=== PATIENT | male | born 1970 | race Caucasian/White ===

== ENCOUNTER 2018-05-09 13:51 | Inpatient (IN) | payer OTHER ==
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
[2018-05-09] MEDS ORDERED: fentaNYL 100 MCG/2 ML INJ IVP ONE (14:10)
[2018-05-09] MEDS ORDERED: IOPAMIDOL (ISOVUE-300) 100 ML BTL ONE (14:18)
[2018-05-09] MEDS ORDERED: HYDROmorphONE/DILAUDID 2 MG/ML INJ IVP ONE ×3 (14:55→15:59)
[2018-05-09] MEDS ORDERED: LET GEL TOPICAL 1 EA SYR TP ONE ×2 (15:18→15:20)
[2018-05-09] MEDS ORDERED: HYDROmorphONE/DILAUDID 1 MG/ML INJ ONE (15:34)
[2018-05-09] MEDS: HYDROmorphONE/DILAUDID 1 MG/ML INJ IVP ONE ×2 (15:38→16:06)
[2018-05-09] MEDS ORDERED: KETAMINE 200 MG/20 ML VIAL IVP ONE (16:01)
[2018-05-09 16:09] LABS: PLATELET COUNT 351 10^3/uL (150-400)
[2018-05-09 16:16] LABS: PROTIME(PATIENT) 13.4 SEC (12.0-15.0)
[2018-05-09] MEDS ORDERED: NALOXONE HCL 0.4 MG/ML INJ IVP PRN ×2 (17:10→17:14)
[2018-05-09] MEDS ORDERED: ACETAMINOPHEN 325 MG TAB PO PRN (17:14)
[2018-05-09] MEDS ORDERED: ESCITALOPRAM OXALATE 10 MG TAB PO PRN (17:35)
[2018-05-09] MEDS: LORazepam 2 MG/ML INJ IVP PRN (17:55)
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
[2018-05-09] MEDS: KETOROLAC 15 MG/1 ML SDV IVP SCH ×2 (18:24→23:45)
[2018-05-09] MEDS: HYDROmorphONE/DILAUDID 6 MG/30 ML PCA IV PRN (23:50)
[2018-05-10] MEDS: KETOROLAC 15 MG/1 ML SDV IVP SCH ×3 (05:37→18:24)
[2018-05-10] MEDS: LR 1,000 ML IV SCH ×2 (05:43→20:32)
[2018-05-10 05:59] LABS: PLATELET COUNT 175 10^3/uL (150-400)
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
[2018-05-10 07:20] LABS: PLATELET COUNT 189 10^3/uL (150-400)
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
[2018-05-10] MEDS: ONDANSETRON 4 MG/2 ML VIAL IVP PRN ×2 (14:18→19:52)
--- NOTE | 2018-05-10 15:29 | TRAUMAPNT ---
Trauma Tertiary Progress Note New Findings: No new findings Assessment/Plan: PAD#1 06/10/2018 Assessment: Neuro: SAH/TBI - awake and alert, appears cognitively intact C6 facet fx - in c-collar T7 and L4 Compression Fx - in [place] brace Ortho: Awaiting Dr. Cabrera's input regarding clavicular Fx Awaiting Dr. Oliver's input regarding PIP fracture Chest: Has two fractures in right ribs 2-5 and less than .2%PTX Plan: Feed patient Follow ortho/ neuro suggestions obtain F/u CXR work with pulmonary toilet/pain control Subjective: No new complaints Objective: Vital Signs Temp Pulse Resp BP Pulse Ox 36.8 C 54 L 18 153/79 H 95 05/10/18 12:00 05/10/18 14:00 05/10/18 14:00 05/10/18 14:00 05/10/18 14:00 Laboratory Results 05/10/18 07:00 05/09/18 05/10/18 05/11/18 05:59 05:59 05:59 Intake Total 823 Output Total 450 Balance 373 PT 13.4 SEC (12.0-15.0) 05/09/18 14:12 INR 1.00 (0.83-1.16) 05/09/18 14:12 - C-Spine Clearance Cervical Spine Cleared: No Physical Exam - Physical Exam General Appearance: WD/WN, alert, mild distress Neck: other (In [place] collar) Respiratory: lungs clear, normal breath sounds Cardiac/Chest: regular rate, rhythm Abdomen: normal bowel sounds, non-tender, soft Male Genitalia: deferred Rectal: deferred Skin: normal color, warm/dry Extremities: other (right clavicular fracture/right shoulder swelling) Neuro/Psych: alert, normal mood/affect, oriented x 3 Time Spent w/Patient (minutes): 45
[2018-05-10] MEDS ORDERED: LACTULOSE 20 GM/30 ML UDCUP PO PRN (15:38)
[2018-05-10] MEDS ORDERED: BISACODYL 10 MG SUPP PR PRN (15:38)
[2018-05-10] MEDS ORDERED: POLYETHYLENE GLYCOL 3350 17 GM PKT PO PRN (15:38)
[2018-05-10] MEDS ORDERED: MAGNESIUM HYDROXIDE 30 ML UDCUP PO PRN (15:38)
[2018-05-10] MEDS: LIDOCAINE 4%/MENTHOL 1% PATCH TD SCH (16:36)
[2018-05-10 17:04] LABS: PLATELET COUNT 173 10^3/uL (150-400)
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
[2018-05-10] MEDS: HYDROmorphONE/DILAUDID 6 MG/30 ML PCA IV PRN (18:57)
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
[2018-05-10] MEDS: SENNOSIDES/DOCUSATE SODIUM TAB PO SCH (21:54)
[2018-05-10] MEDS: PATCH REMOVAL 1 EA PATCH TD SCH (22:03)
[2018-05-10] MEDS: ACETAMINOPHEN 500 MG TAB PO SCH (22:03)
[2018-05-11] MEDS: KETOROLAC 15 MG/1 ML SDV IVP SCH ×5 (00:04→23:05)
[2018-05-11] MEDS: HYDROmorphONE/DILAUDID 6 MG/30 ML PCA IV PRN (01:56)
[2018-05-11] MEDS: ACETAMINOPHEN 500 MG TAB PO SCH ×3 (05:09→22:39)
[2018-05-11 05:26] LABS: PLATELET COUNT 152 10^3/uL (150-400)
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
[2018-05-11] MEDS: LR 1,000 ML IV SCH (09:24)
[2018-05-11] MEDS: ONDANSETRON 4 MG/2 ML VIAL IVP PRN ×2 (09:36→15:34)
[2018-05-11] MEDS ORDERED: PROCHLORPERAZINE MALEATE 25 MG SUPPR PR ONE (10:44)
--- NOTE | 2018-05-11 10:55 | TRAUMAPN ---
Trauma Progress Note Assessment/Plan: PAD#1 05/10/2018 Assessment: Neuro: SAH/TBI - awake and alert, appears cognitively intact C6 facet fx - in c-collar T7 and L4 Compression Fx - in [place] brace Ortho: Awaiting Dr. Cabrera's input regarding clavicular Fx Awaiting Dr. Oliver's input regarding PIP fracture Chest: Has two fractures in right ribs 2-5 and less than .2%PTX Plan: Feed patient Follow ortho/ neuro suggestions obtain F/u CXR work with pulmonary toilet/pain control PAD#2 05/11/2018 Assessment: Neuro: - awake and alert, no focal or lateralizing findings but c/o headache C6 facet fx - in C-collar T7 and L4 Compression fractures - in [place] Brace when ever > 60 degrees up Ortho: - Dr. Cabrera will delay clavicle repair for 1-4 weeks until other issues have resolved Dr. Oliver was able to reduce left 4th PIP fx/dislocation successfully at bedside. Chest: - No PTX seen atelectasis improved C/o of right masseter muscle tenderness Plan: If headaches increase will re-scan No sling per ortho when in bed Maintain finger splint Will adjust pain meds Will work on improving GI function Subjective: Headaches are increased Has nausea with CLEAN UP HEL[employer]QUET Objective: Vital Signs Temp Pulse Resp BP Pulse Ox 36.6 C 55 L 9 L 112/65 94 05/11/18 08:00 05/11/18 08:00 05/11/18 08:00 05/11/18 08:00 05/11/18 08:00 Laboratory Results 05/11/18 05:20 05/11/18 05:20 05/10/18 05/11/18 05/12/18 05:59 05:59 05:59 Intake Total 823 3463.2 Output Total 450 450 Balance 373 3013.2 PT 13.4 SEC (12.0-15.0) 05/09/18 14:12 INR 1.00 (0.83-1.16) 05/09/18 14:12 - C-Spine Clearance Cervical Spine Cleared: No Physical Exam - Physical Exam General Appearance: WD/WN, alert, mild distress EENT: other (C-Collar in place) Respiratory: lungs clear, normal breath sounds Cardiac/Chest: regular rate, rhythm Abdomen: non-tender, soft, distended, other (hypoactive bowel sounds) Rectal: deferred Back: Normal inspection Skin: normal color, warm/dry, other (abrasions stable) Neuro/Psych: no motor/sensory deficits, alert, normal mood/affect, oriented x 3 Time Spent w/Patient (minutes): 35
[2018-05-11] MEDS: LIDOCAINE 4%/MENTHOL 1% PATCH TD SCH (11:09)
[2018-05-11] MEDS: SENNOSIDES/DOCUSATE SODIUM TAB PO SCH ×2 (11:11→22:39)
[2018-05-11] MEDS: NS W/ 20 KCl/L 1,000 ML IV SCH (15:03)
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
[2018-05-11] MEDS: SCOPOLAMINE HYDROBROMIDE 1 MG/3 DAYS PATCH TD SCH (17:00)
[2018-05-11] MEDS: FAMOTIDINE 20 MG/NACL 50 ML IV SCH (20:48)
[2018-05-11] MEDS: PATCH REMOVAL 1 EA PATCH TD SCH (22:39)
[2018-05-12] MEDS: LORazepam 2 MG/ML INJ IVP PRN (02:23)
[2018-05-12] MEDS: NS W/ 20 KCl/L 1,000 ML IV SCH (02:26)
[2018-05-12] MEDS: KETOROLAC 15 MG/1 ML SDV IVP SCH ×4 (06:09→23:37)
[2018-05-12] MEDS: ACETAMINOPHEN 500 MG TAB PO SCH ×3 (06:10→20:21)
[2018-05-12 06:29] LABS: PLATELET COUNT 134 10^3/uL (150-400)
[2018-05-12] MEDS: LIDOCAINE 4%/MENTHOL 1% PATCH TD SCH (09:46)
[2018-05-12] MEDS: SENNOSIDES/DOCUSATE SODIUM TAB PO SCH ×2 (09:46→20:21)
[2018-05-12] MEDS: FAMOTIDINE 20 MG/NACL 50 ML IV SCH ×2 (09:46→20:22)
--- NOTE | 2018-05-12 09:53 | TRAUMAPN ---
Trauma Progress Note Assessment/Plan: PAD#1 05/10/2018 Assessment: Neuro: SAH/TBI - awake and alert, appears cognitively intact C6 facet fx - in c-collar T7 and L4 Compression Fx - in [place] brace Ortho: Awaiting Dr. Cabrera's input regarding clavicular Fx Awaiting Dr. Oliver's input regarding PIP fracture Chest: Has two fractures in right ribs 2-5 and less than .2%PTX Plan: Feed patient Follow ortho/ neuro suggestions obtain F/u CXR work with pulmonary toilet/pain control PAD#2 05/11/2018 Assessment: Neuro: - awake and alert, no focal or lateralizing findings but c/o headache C6 facet fx - in C-collar T7 and L4 Compression fractures - in [place] Brace when ever > 60 degrees up Ortho: - Dr. Cabrera will delay clavicle repair for 1-4 weeks until other issues have resolved Dr. Oliver was able to reduce left 4th PIP fx/dislocation successfully at bedside. Chest: - No PTX seen atelectasis improved C/o of right masseter muscle tenderness Plan: If headaches increase will re-scan No sling per ortho when in bed Maintain finger splint Will adjust pain meds Will work on improving GI function PAD#3 05/12/2018 Assessment: Neuro- Headache/vertigo - minimal headache persists but resolving In brace for T7 & L4 C6- In C-collar Ortho- Clavicle- Surgical repair in future Finger - no complaints Chest-IS to 2000 but only 800 with slow inspiration Rib pain control adequate Nutrition- passing gas +/- BS Plan: Observe in SDU for 24 more hours Ambulate/SCDs for DVT prophylaxis Work on IS Encourage oral intake Subjective: I'm passing gas The headaches are resolving Objective: Vital Signs Temp Pulse Resp BP Pulse Ox 36.5 C 47 L 12 129/72 H 92 05/12/18 04:00 05/12/18 08:00 05/12/18 08:00 05/12/18 08:00 05/12/18 08:00 Laboratory Results 05/12/18 06:00 05/12/18 06:10 05/11/18 05/12/18 05/13/18 05:59 05:59 05:59 Intake Total 3463.2 2008.2 Output Total 450 1200 Balance 3013.2 808.2 PT 13.4 SEC (12.0-15.0) 10/01/18 14:12 INR 1.00 (0.83-1.16) 05/09/18 14:12 - C-Spine Clearance Cervical Spine Cleared: No Physical Exam - Physical Exam General Appearance: WD/WN, alert, mild distress Neck: other (in C-collar) Respiratory: lungs clear, normal breath sounds, other (Room air sat good) Cardiac/Chest: regular rate, rhythm Abdomen: non-tender, soft, other (hypoactive bowel sounds) Male Genitalia: deferred, hernia Back: Normal inspection Skin: normal color, warm/dry Neuro/Psych: no motor/sensory deficits, alert, normal mood/affect, oriented x 3 (25)
[2018-05-12] MEDS: HYDROmorphONE/DILAUDID 2 MG TAB PO PRN ×4 (10:32→20:21)
--- NOTE | 2018-05-12 16:24 | ASMTCMCOM ---
CM Note CM Note Notes: Inpatient rehab eval is in progress and they are waiting on therapy recommendations to make their final decision. D/C plan remains TBD at this time. CM will follow. Date Signed: 05/12/2018 04:23 PM Electronically Signed By:Sandie Roland LCSW
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
[2018-05-12] MEDS: CYCLOBENZAPRINE 10 MG TAB PO PRN (20:21)
[2018-05-12] MEDS: PATCH REMOVAL 1 EA PATCH TD SCH (20:49)
[2018-05-13] MEDS: HYDROmorphONE/DILAUDID 2 MG TAB PO PRN ×5 (00:25→19:44)
[2018-05-13] MEDS: KETOROLAC 15 MG/1 ML SDV IVP SCH ×4 (05:59→23:32)
[2018-05-13] MEDS: CYCLOBENZAPRINE 10 MG TAB PO PRN ×2 (06:03→21:15)
[2018-05-13] MEDS: ACETAMINOPHEN 500 MG TAB PO SCH ×3 (06:38→23:33)
[2018-05-13] MEDS: SENNOSIDES/DOCUSATE SODIUM TAB PO SCH ×2 (09:01→19:44)
[2018-05-13] MEDS: LIDOCAINE 4%/MENTHOL 1% PATCH TD SCH (09:01)
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
[2018-05-13] MEDS: FAMOTIDINE 20 MG TAB PO SCH ×2 (09:49→19:44)
[2018-05-13] MEDS: FAMOTIDINE 20 MG/NACL 50 ML IV SCH (10:02)
--- NOTE | 2018-05-13 14:36 | ASMTCMCOM ---
CM Note CM Note Notes: Pt has progressed and does not have sufficient goals for [facility] inpatient rehab. Spoke with pt and mother in law Debbie about this and pt understands and wants to get home. Pt provided list for hospital bed rental and the hospital bed prescription was faxed to [facility] to see if it can be covered by insurance. 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 CM to follow. Date Signed: 05/13/2018 02:35 PM Electronically Signed By:MAMIE Miles
[2018-05-14] MEDS: HYDROmorphONE/DILAUDID 2 MG TAB PO PRN ×4 (00:04→20:11)
[2018-05-14] MEDS: PATCH REMOVAL 1 EA PATCH TD SCH ×2 (00:30→20:12)
[2018-05-14] MEDS: KETOROLAC 15 MG/1 ML SDV IVP SCH ×2 (05:54→13:20)
[2018-05-14] MEDS: ACETAMINOPHEN 500 MG TAB PO SCH ×3 (05:57→22:58)
[2018-05-14] MEDS: LIDOCAINE 4%/MENTHOL 1% PATCH TD SCH (09:04)
[2018-05-14] MEDS: FAMOTIDINE 20 MG TAB PO SCH ×2 (09:04→20:10)
[2018-05-14] MEDS: SENNOSIDES/DOCUSATE SODIUM TAB PO SCH ×2 (09:04→20:10)
--- NOTE | 2018-05-14 11:45 | TRAUMAPN ---
Trauma Progress Note Assessment/Plan: PAD#1 05/10/2018 Assessment: Neuro: SAH/TBI - awake and alert, appears cognitively intact C6 facet fx - in c-collar T7 and L4 Compression Fx - in Jewitt brace Ortho: Awaiting Dr. Cabrera's input regarding clavicular Fx Awaiting Dr. Oliver's input regarding PIP fracture Chest: Has two fractures in right ribs 2-5 and less than .2%PTX Plan: Feed patient Follow ortho/ neuro suggestions obtain F/u CXR work with pulmonary toilet/pain control PAD#2 05/11/2018 Assessment: Neuro: - awake and alert, no focal or lateralizing findings but c/o headache C6 facet fx - in C-collar T7 and L4 Compression fractures - in Jewitt Brace when ever > 60 degrees up Ortho: - Dr. Cabrera will delay clavicle repair for 1-4 weeks until other issues have resolved Dr. Oliver was able to reduce left 4th PIP fx/dislocation successfully at bedside. Chest: - No PTX seen atelectasis improved C/o of right masseter muscle tenderness Plan: If headaches increase will re-scan No sling per ortho when in bed Maintain finger splint Will adjust pain meds Will work on improving GI function PAD#3 05/12/2018 Assessment: Neuro- Headache/vertigo - minimal headache persists but resolving In brace for T7 & L4 C6- In C-collar Ortho- Clavicle- Surgical repair in future Finger - no complaints Chest-IS to 2000 but only 800 with slow inspiration Rib pain control adequate Nutrition- passing gas +/- BS Plan: Observe in SDU for 24 more hours Ambulate/SCDs for DVT prophylaxis Work on IS Encourage oral intake PAD#5 05/14/2018 Assessment: Neuro- Headache/vertigo has resolved, brace working. In C-collar Ortho - Clavicle, yet to be repaired - finger, no complaints Chest - Clear without E to A changes Rib and clavicular pain poorly controlled last night. Patient slept sitting in chair Plan: Working toward home care Increase activity Subjective: "I'm moving my bowels and eating well. Objective: Vital Signs Temp Pulse Resp BP Pulse Ox 36.6 C 57 L 17 122/67 H 97 05/14/18 07:53 05/14/18 07:53 05/14/18 07:53 05/14/18 07:53 05/14/18 07:53 Laboratory Results 10/04/18 06:00 05/12/18 06:10 05/13/18 05/14/18 05/15/18 05:59 05:59 05:59 Intake Total 250 Balance 250 PT 13.4 SEC (12.0-15.0) 05/09/18 14:12 INR 1.00 (0.83-1.16) 05/09/18 14:12 - C-Spine Clearance Cervical Spine Cleared: No Physical Exam - Physical Exam General Appearance: WD/WN, alert, no apparent distress (this AM) Neck: other (In c-collar) Respiratory: chest non-tender, lungs clear, normal breath sounds Cardiac/Chest: regular rate, rhythm Abdomen: normal bowel sounds, non-tender, soft Male Genitalia: deferred Rectal: deferred Back: Normal inspection, Other (Brace in place ( as patient is sitting in chair) ) Extremities: normal range of motion, non-tender, other (Right shoulder tender due to clavicle fx and rib fx) Neuro/Psych: no motor/sensory deficits, alert, normal mood/affect, oriented x 3 Time Spent w/Patient (minutes): 35 (most of the time was spent discussing medical issues: Pain control strategies,rib fracture healing, intracrainial bleeds/concussions, radiation exposure, expected activity during recovery, etc.)
--- NOTE | 2018-05-14 13:47 | ASMTCMCOM ---
CM Note CM Note Notes: Pt Leyla has ordered hospital bed which will not be delivered until Wednesday. A recliner is also being delivered today. [facility] will work w pt/ on problem solving who will follow and sign HHC orders because pt PCP Carly says he will not sign since it has been over one year since pt saw PCP. D/c plan of care: Home with [facility] Wednesday when pt has all DME Date Signed: 05/14/2018 01:46 PM Electronically Signed By:MAMIE Miles
[2018-05-14] MEDS: SCOPOLAMINE HYDROBROMIDE 1 MG/3 DAYS PATCH TD SCH (15:23)
[2018-05-14] MEDS: CYCLOBENZAPRINE 10 MG TAB PO PRN (21:59)
[2018-05-15] MEDS: HYDROmorphONE/DILAUDID 2 MG TAB PO PRN ×3 (00:12→13:38)
[2018-05-15] MEDS: ACETAMINOPHEN 500 MG TAB PO SCH ×2 (06:19→13:37)
[2018-05-15] MEDS: CYCLOBENZAPRINE 10 MG TAB PO PRN (06:19)
[2018-05-15] MEDS: FAMOTIDINE 20 MG TAB PO SCH (08:59)
[2018-05-15] MEDS: LIDOCAINE 4%/MENTHOL 1% PATCH TD SCH (08:59)
[2018-05-15] MEDS: SENNOSIDES/DOCUSATE SODIUM TAB PO SCH (08:59)
--- NOTE | 2018-05-15 11:36 | SOAPPROG ---
SOAP Progress Note Assessment/Plan: Assessment/Plan PAD#1 05/10/2018 Assessment: Neuro: SAH/TBI - awake and alert, appears cognitively intact C6 facet fx - in c-collar T7 and L4 Compression Fx - in Jewitt brace Ortho: Awaiting Dr. Cabrera's input regarding clavicular Fx Awaiting Dr. Oliver's input regarding PIP fracture Chest: Has two fractures in right ribs 2-5 and less than .2%PTX Plan: Feed patient Follow ortho/ neuro suggestions obtain F/u CXR work with pulmonary toilet/pain control PAD#2 05/11/2018 Assessment: Neuro: - awake and alert, no focal or lateralizing findings but c/o headache C6 facet fx - in C-collar T7 and L4 Compression fractures - in Jewitt Brace when ever > 60 degrees up Ortho: - Dr. Cabrera will delay clavicle repair for 1-4 weeks until other issues have resolved Dr. Oliver was able to reduce left 4th PIP fx/dislocation successfully at bedside. Chest: - No PTX seen atelectasis improved C/o of right masseter muscle tenderness Plan: If headaches increase will re-scan No sling per ortho when in bed Maintain finger splint Will adjust pain meds Will work on improving GI function PAD#3 05/12/2018 Assessment: Neuro- Headache/vertigo - minimal headache persists but resolving In brace for T7 & L4 C6- In C-collar Ortho- Clavicle- Surgical repair in future Finger - no complaints Chest-IS to 2000 but only 800 with slow inspiration Rib pain control adequate Nutrition- passing gas +/- BS Plan: Observe in SDU for 24 more hours Ambulate/SCDs for DVT prophylaxis Work on IS Encourage oral intake PAD#5 05/14/2018 Assessment: Neuro- Headache/vertigo has resolved, brace working. In C-collar Ortho - Clavicle, yet to be repaired - finger, no complaints Chest - Clear without E to A changes Rib and clavicular pain poorly controlled last night. Patient slept sitting in chair Plan: Working toward home care Increase activity PAD#6 05/15/18 11:33 Assessment: Right shoulder/clavicle/rib pain precludes sleeping in supine position but he can sleep sitting in a recliner. Plan: Discharge today Objective: Vital Signs Temp Pulse Resp BP Pulse Ox 36.4 C 52 L 16 123/82 H 91 L 05/15/18 07:38 05/15/18 07:38 05/15/18 07:38 05/15/18 07:38 05/15/18 07:38 Laboratory Results 05/12/18 06:00 05/12/18 06:10 05/14/18 05/15/18 05/16/18 05:59 05:59 05:59 Intake Total 400 Balance 400 PT 13.4 SEC (12.0-15.0) 05/09/18 14:12 INR 1.00 (0.83-1.16) 05/09/18 14:12 - Time Spent With Patient Time Spent With Patient: 25 Physical Exam - Physical Exam General Appearance: WD/WN, alert, no apparent distress Neck: other (c-collar inplace) Respiratory: lungs clear, normal breath sounds Cardiac/Chest: regular rate, rhythm Abdomen: normal bowel sounds, non-tender, soft Male Genitalia: deferred Rectal: deferred Back: Normal inspection, Other (Brace in place) Skin: normal color, warm/dry Neuro/Psych: no motor/sensory deficits, alert, normal mood/affect, oriented x 3 ICD10 Worksheet Patient Problems: Problems Problem Status Onset Closed dislocation of left ring finger Acute Compression fx, lumbar spine Acute Compression fx, thoracic spine Acute Ribs, multiple fractures Acute Traumatic subarachnoid hemorrhage Acute
[2018-05-15] MEDS ORDERED: IBUPROFEN 200 MG TAB PO SCH (14:00)
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
--- NOTE | 2018-05-15 15:07 | ASMTDCNOTE ---
Case Management Discharge Discharge Order Complete? Answers: Yes Patient to Obtain Answers: via [facility] Transportation Arranged Answers: Family/Friends Transport will Pick (Date 05/15/2018 04:00 PM & Time) Faxed Final Orders Answers: Yes Notes: [facility] Family Notified Answers: Yes Notes: Family to transport Discharge Comments Notes: Patient has been discharged home w/ and [facility]. Date Signed: 05/15/2018 03:06 PM Electronically Signed By:Justine Sims LCSW
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
[2018-05-15 16:36] VITALS: BP 120/72
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
== END 2018-05-15 17:00 | disposition home health service (06) | DRG 964 ==
LOC: F2N 16:53 → F3N 05-12 22:24
PROVIDERS: ADMIT Surgery; ATTEND Surgery
PROC: 0PSTXZZ Reposition Right Finger Phalanx, External Approach (ICD-10-PCS; principal; 2018-05-10)
DX: S06.6X0A Traumatic subarachnoid hemorrhage without loss of consciousness, initial encounter (principal); S22.5XXA Flail chest, initial encounter for closed fracture; S27.0XXA Traumatic pneumothorax, initial encounter; S42.021A Displaced fracture of shaft of right clavicle, initial encounter for closed fracture; S12.501A Unspecified nondisplaced fracture of sixth cervical vertebra, initial encounter for closed fracture; S22.060A Wedge compression fracture of T7-T8 vertebra, initial encounter for closed fracture; S32.040A Wedge compression fracture of fourth lumbar vertebra, initial encounter for closed fracture; S62.624A Displaced fracture of middle phalanx of right ring finger, initial encounter for closed fracture; V18.4XXA Pedal cycle driver injured in noncollision transport accident in traffic accident, initial encounter; Y92.414 Local residential or business street as the place of occurrence of the external cause; Y93.55 Activity, bike riding; Y99.8 Other external cause status
CPT/HCPCS: 82435-PO; 82565-PO; 82947-PO; 84132-PO; 84295-PO; 84520-PO; 85014-PO; 92507-GN; 92523-GN; 96374; 97116-GP; 97161-GP; 97166-GO; 97530-GP; 97535-GO; J1170; J1885; J2060; J2270; J2405; J3010; L0172; Q9967

== ENCOUNTER 2018-05-18 10:48 | Inpatient (IN) | payer OTHER ==
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
[2018-05-18] MEDS ORDERED: HYDROmorphONE/DILAUDID 2 MG/ML INJ IVP ONE (11:09)
[2018-05-18 11:42] LABS: INR 1.24 (0.83-1.16); PROTIME(PATIENT) 15.8 SEC (12.0-15.0)
[2018-05-18 12:09] LABS: PLATELET COUNT 199 10^3/uL (150-400)
--- NOTE | 2018-05-18 12:20 | CPEKG ---
Test Reason : OPEN Blood Pressure : / mmHG Vent. Rate : 101 BPM Atrial Rate : 101 BPM P-R Int : 173 ms QRS Dur : 091 ms QT Int : 348 ms P-R-T Axes : 064 021 -10 degrees QTc Int : 452 ms Sinus tachycardia Confirmed by Franklin Muller ([id number]) on 05/18/2018 12:19:31 PM Referred By: Confirmed By:Franklin Muller
--- NOTE | 2018-05-18 12:39 | ECHO ---
[email or web address] [address] Main: [phone] Fax: Transthoracic Echocardiogram Name: LIBORIO REY MR#: [id number] Study Date: 05/18/2018 Study Time: 12:05 PM Date of : 1970 Age: 48 year(s) Height: 188 cm (74 in.) Weight: 95.26 kg (210 lb.) BSA: 2.22 m2 Gender: Male Examination: Echo Indication: Chest Pain Image Quality: Adequate Contrast: Requested by: Franklin Muller BP: 114 mmHg/67 mmHg Heart Rate: Rhythm: Indication: Chest Pain Procedure Staff Building Trades Instructor: Arlyn Strickland RD Reading Physician: Yimi Suazo MD Requesting Provider: Conclusions: Normal global systolic LV function. EF is 60 %. Mild mitral valve regurgitation is present. Trivial aortic valve regurgitation. Mild tricuspid regurgitation is present. Right ventricular systolic pressure measures 35mmHg. There is a pleural effusion present. Measurements: Chambers Valvular Assessment AV/MV Valvular Assessment TV/PV Normal Normal Normal Name Value Range Name Value Range Name Value Range Ao Janneth (2D): 3.3 cm (1.4 cm-2.6 AV Vmax: 1.31 m/s (1 m/s-1.7 TR Vmax: 2.74 mm/s ( - ) cm) m/s) TR PGmax: 30 mmHg ( - ) IVSd (2D): 1.2 cm (0.6 cm-1.1 AV maxP mmHg ( - ) syst. PAP: 35 mmHg ( - ) cm) AV meanP mmHg ( - ) PV Vmax: 0.98 m/s (0.6 m/s-0.9 LVDd (2D): 4.5 cm (4.2 cm-5.9 LVOT Vmax: 1.07 m/s (0.7 m/s-1.1 m/s) cm) m/s) PV PGmax: 4 mmHg ( - ) LVDs (2D): 3.0 cm (2.1 cm-4 GILBERT (Vmax): 2.8 cm2 ( - ) cm) GILBERT (VTI): 2.7 cm ( - ) LVPWd (2D): 1.1 cm (0.6 cm-1 MV E Vmax: 0.55 m/s ( - ) cm) MV A Vmax: 0.42 m/s ( - ) LVOTd 2.1 cm 2.1 cm mm MV E/A: 1.31 ( - ) LVEF (BP): 60 % (>=55 %) MV PHT: 0.072 s ( - ) RVDd(2D): 2.4 cm (1.9 cm-3.8 cmmm) MVA (PHT): 3.1 s ( - ) Continued Measurements: Chambers Valvular Assessment AV/MV Valvular Assessment TV/PV Patient: LIBORIO REY Study Date: 05/18/2018 Page 1 of 2 12:05 PM Name Value Name Value Name Value LADs: 3.7 cm MV DecTime: 229 m/s CVP (est.): 5 mmHg LADs Lon.5 cm MV E/E' Septal: 6.50 LA Area: 16.0 cm2 MV E/E' Lateral: 4.80 LA Volume: 43 ml LA Volume Index: 19.4 ml/m2 RA Area: 21.0 cm2 Additional Vessels Name Value Ao Ascendin.8 cm Inferior Vena Cava: 1.6 cm Findings: Left Ventricle: Normal size left ventricle. Borderline concentric LV hypertrophy. Normal global systolic LV function. EF is 60 %. No regional wall motion abnormality. Normal diastolic LV function. Possible mild septal dyskinesis/flattening from RV pressure overload. Right Ventricle: Mildly reduced RV function. Dilated right ventricle. Left Atrium: The left atrium is normal in size. Right Atrium: The right atrium is mildly dilated. Mitral Valve: The mitral valve is normal in appearance and function. Mild mitral valve regurgitation is present. No mitral stenosis is present. Aortic Valve: The aortic valve is tri-leaflet. Trivial aortic valve regurgitation. No aortic valve stenosis is present. Tricuspid Valve: The tricuspid valve is normal in appearance and function. Mild tricuspid regurgitation is present. The pulmonary artery pressure is normal. Right ventricular systolic pressure measures 35mmHg. Pulmonic Valve: The pulmonic valve is normal in appearance and function. There is no pulmonic regurgitation seen. Aorta: The aorta is normal. Normal size aortic root measuring 3.3 cm. Normal size ascending aorta measuring 2.8 cm. IVC: The IVC is normal sized. Pericardium: No pericardial effusion. There is a pleural effusion present. (No Signature Object) Patient: LIBORIO REY Study Date: 05/18/2018 Page 2 of 2 12:05 PM [id number]
[2018-05-18] MEDS ORDERED: ACETAMINOPHEN 325 MG TAB PO PRN (13:22)
[2018-05-18] MEDS ORDERED: HYDROmorphONE/DILAUDID 1 MG/ML INJ ONE (14:06)
[2018-05-18] MEDS ORDERED: HYDROmorphONE/DILAUDID 1 MG/ML INJ IVP ONE (14:08)
--- NOTE | 2018-05-18 15:10 | ASMTCMCOM ---
CM Note CM Note Notes: [facility] contacted and informed of patient's re-admission CM to follow Date Signed: 05/18/2018 03:09 PM Electronically Signed By:Windy Mckay RN
[2018-05-18] MEDS ORDERED: valACYclovir 500 MG TAB PO PRN (15:16)
[2018-05-18] MEDS ORDERED: CYCLOBENZAPRINE 10 MG TAB PO PRN (15:16)
[2018-05-18] MEDS ORDERED: DIAZEPAM 5 MG TAB PO PRN (15:16)
[2018-05-18] MEDS ORDERED: ESCITALOPRAM OXALATE 10 MG TAB PO PRN (15:16)
[2018-05-18] MEDS ORDERED: SCOPOLAMINE HYDROBROMIDE 1 MG/3 DAYS PATCH TD PRN (15:16)
[2018-05-18] MEDS ORDERED: HYDROmorphONE/DILAUDID 1 MG/ML INJ IVP PRN (15:17)
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
[2018-05-18] MEDS ORDERED: NS 1,000 ML IV ONE ×2 (17:16→17:21)
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
[2018-05-18] MEDS ORDERED: morphINE SR 15 MG TAB PO ONE (17:45)
[2018-05-18] MEDS ORDERED: ONDANSETRON 4 MG/2 ML VIAL IVP PRN (17:46)
[2018-05-18] MEDS ORDERED: AMPICILLIN/SULBACTAM 3 GM in NS 100 ML IV SCH (18:00)
[2018-05-18] MEDS: AMPICILLIN/SULBACTAM 3 GM in NS 100 ML IV SCH (18:44)
[2018-05-18] MEDS: NS 1,000 ML IV SCH (18:45)
[2018-05-18] MEDS ORDERED: morphINE SR 15 MG TAB PO SCH (21:00)
[2018-05-18] MEDS: HEPARIN 5,000 UNIT/0.5 ML INJ SC SCH (21:09)
[2018-05-18] MEDS: ACETAMINOPHEN 500 MG TAB PO SCH (21:10)
[2018-05-18] MEDS: HYDROmorphONE/DILAUDID 2 MG TAB PO PRN (21:16)
[2018-05-19] MEDS: HYDROmorphONE/DILAUDID 2 MG TAB PO PRN ×2 (00:46→12:26)
[2018-05-19] MEDS: NS 1,000 ML IV SCH ×2 (00:46→16:27)
[2018-05-19] MEDS: AMPICILLIN/SULBACTAM 3 GM in NS 100 ML IV SCH ×3 (03:09→17:31)
[2018-05-19] MEDS: HYDROCORTISONE 1% CREAM TP SCH (03:53)
[2018-05-19] MEDS: ACETAMINOPHEN 500 MG TAB PO SCH ×3 (05:29→17:18)
[2018-05-19] MEDS: HEPARIN 5,000 UNIT/0.5 ML INJ SC SCH (05:29)
[2018-05-19 05:53] LABS: PLATELET COUNT 173 10^3/uL (150-400)
[2018-05-19] MEDS: LIDOCAINE 4%/MENTHOL 1% PATCH TD SCH (09:05)
[2018-05-19] MEDS: morphINE SR 15 MG TAB PO SCH ×2 (09:06→20:30)
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
--- NOTE | 2018-05-19 11:03 | WOCRNPDOC ---
WOCRN Advanced Assessment Note - Skin Integrity Problem, Advanced Assess Right Shoulder Abrasion Dressing Type: Allevyn Life Dressing Description: Intact, Shadowed Exudate Amount: Minimal Exudate Characteristic(s): Serous Integumentary Issue Intervention: Visualized Under Dressing Marga Wound Swelling: None Wound Bed Color: Tappen Wound Bed Constitution: Red/Tappen - Non Granular Tissue (50%), Adhered Slough (50 %) Wound Edges: Epithelizing, Attached Site Measurement - Head-to-Toe Length X Width X Depth (cm): 2x3x0.1 Skin Integrity Problem Comment: Partial thickness abrasion along with an area of newly healed skin. Wound was cleansed with NS and gauze. Wound care will sign off, please reconsult PRN. Left Elbow Abrasion Dressing Type: Mepilex Dressing Description: Intact, Shadowed Exudate Amount: Scant Exudate Characteristic(s): Serous Integumentary Issue Intervention: Visualized Under Dressing Wound Bed Color: Tappen, Yellow Wound Bed Constitution: Red/Tappen - Non Granular Tissue (50%), Adhered Slough (50 %) Wound Edges: Epithelizing, Attached Site Measurement - Head-to-Toe Length X Width X Depth (cm): 4x2.3x0.1 Skin Integrity Problem Comment: Partial thickness abrasion. Wound was cleansed with NS and gauze. Dressing was falling off, will switch to Allevyn with wound gel. Wound care will sign off, please reconsult PRN. Left Lower Lateral Leg Abrasion Dressing Type: Mepilex Dressing Description: Intact, Shadowed Exudate Amount: Minimal Exudate Characteristic(s): Serous Integumentary Issue Intervention: Visualized Under Dressing Wound Bed Color: Tappen Wound Bed Constitution: Red/Tappen - Non Granular Tissue Wound Edges: Epithelizing, Attached Site Measurement - Head-to-Toe Length X Width X Depth (cm): 11x4x0.1 Skin Integrity Problem Comment: Partial thickness abrasion. Wound was cleansed with NS and gauze. Dressing was falling off, will switch to Allevyn with wound gel. Wound care will sign off, please reconsult PRN.
[2018-05-19] MEDS: NYSTATIN SUSP 500000 UNIT/5 ML UD LIQ PO SCH ×3 (11:26→22:00)
--- NOTE | 2018-05-19 11:41 | PDINTPN ---
Ext Js Developer Progress Note Assessment/Plan: Assessment: ROEL: Improved rapidly with fluids. Likely due to dehydration. ? Underlying infection contributing as well. Dyspnagia: ? Due to kobi? ? thoracic injury/hematoma affecting esophagus, less likely. Hypoxemia: Likely due to rib fractures/hematoma/splinting Hiccups: Suspect this may be due to chest trauma/hematomas, although temporal relationship with swallowing raises possibility of esophageal involvement. Plan: Nystatin. CT Angio. Continue MS Contin, ? increase dose or change to Oxycontin or fentanyl patch if side effects bothersome. Follow renal function. OK to transfer to floor. 05/19/18 11:42 Subjective: Slept a bit better with MS Contin, but pain control still not optimal and he had some vivid dreams with the morphine. He continues to have dysphagia and burning in his chest with drinking liquids. Objective: Vital Signs Temp Pulse Resp BP Pulse Ox 36.8 C 83 16 129/78 H 96 05/19/18 08:00 05/19/18 08:00 05/19/18 08:00 05/19/18 08:00 05/19/18 08:00 Laboratory Results 05/19/18 05:28 05/19/18 05:28 05/18/18 05/19/18 05/20/18 05:59 05:59 05:59 Intake Total 6379 Output Total 1400 Balance 4979 PT 15.8 SEC (12.0-15.0) H 05/18/18 11:24 INR 1.24 (0.83-1.16) H 05/18/18 11:24 Physical Exam - Physical Exam General Appearance: alert, no apparent distress EENT: normal ENT inspection, other (white plaque on tongue, no thrush on palate/ pharynx) Neck: normal inspection Respiratory: lungs clear, No normal breath sounds Cardiac/Chest: regular rate, rhythm, edema Abdomen: normal bowel sounds, non-tender Skin: normal color, warm/dry Extremities: normal inspection Neuro/Psych: alert, normal mood/affect, oriented x 3 ICD10 Worksheet Patient Problems: Problems Problem Status Onset Acute renal insufficiency Acute Hypoxia Acute Tachycardia Acute Closed dislocation of left ring finger Acute Compression fx, lumbar spine Acute Compression fx, thoracic spine Acute Ribs, multiple fractures Acute Traumatic subarachnoid hemorrhage Acute
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
[2018-05-19] MEDS ORDERED: IOPAMIDOL (ISOVUE 370) 100 ML BTL IV ONE ×2 (13:30→14:05)
[2018-05-19] MEDS ORDERED: AMPICILLIN/SULBACTAM 3 GM in NS 100 ML IV SCH (14:00)
[2018-05-19] MEDS: ACETAMINOPHEN 325 MG TAB PO PRN (14:48)
[2018-05-19] MEDS ORDERED: POLYETHYLENE GLYCOL 3350 17 GM PKT PO PRN (15:14)
[2018-05-19] MEDS ORDERED: LACTULOSE 20 GM/30 ML UDCUP PO PRN (15:14)
[2018-05-19] MEDS ORDERED: MAGNESIUM HYDROXIDE 30 ML UDCUP PO PRN (15:14)
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
[2018-05-19] MEDS: BACLOFEN 10 MG TAB PO SCH ×2 (18:21→20:30)
[2018-05-19] MEDS: FAMOTIDINE 20 MG TAB PO SCH (20:29)
[2018-05-19] MEDS: SENNOSIDES/DOCUSATE SODIUM TAB PO SCH (20:31)
[2018-05-19] MEDS ORDERED: PATCH REMOVAL 1 EA PATCH TD SCH (21:00)
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
[2018-05-20] MEDS: AMPICILLIN/SULBACTAM 3 GM in NS 100 ML IV SCH ×3 (00:24→10:23)
[2018-05-20] MEDS: NS 1,000 ML IV SCH (00:25)
[2018-05-20] MEDS: HYDROCORTISONE 1% CREAM TP SCH ×2 (00:54→08:02)
[2018-05-20] MEDS: ACETAMINOPHEN 325 MG TAB PO PRN (06:17)
[2018-05-20] MEDS: NYSTATIN SUSP 500000 UNIT/5 ML UD LIQ PO SCH ×3 (06:17→16:31)
--- NOTE | 2018-05-20 07:15 | SOAPPROG ---
SOAP Progress Note Assessment/Plan: Assessment: Alert and feeling very comfortable today/breath sounds equal/no new problems/ labs stable Plan: Probably home soon per Internal Medicine/no drainable collections 05/20/18 07:14 Objective: Vital Signs Temp Pulse Resp BP Pulse Ox 37.1 C 64 13 125/73 H 97 05/20/18 04:00 05/20/18 04:00 05/20/18 04:00 05/20/18 04:00 05/20/18 04:00 Laboratory Results 05/20/18 04:14 05/20/18 04:14 05/19/18 05/20/18 05/21/18 05:59 05:59 05:59 Intake Total 6379 220 Output Total 1400 1400 Balance 4979 -1180 PT 15.8 SEC (12.0-15.0) H 05/18/18 11:24 INR 1.24 (0.83-1.16) H 05/18/18 11:24 ICD10 Worksheet Patient Problems: Problems Problem Status Onset Acute renal insufficiency Acute Hypoxia Acute Tachycardia Acute Closed dislocation of left ring finger Acute Compression fx, lumbar spine Acute Compression fx, thoracic spine Acute Ribs, multiple fractures Acute Traumatic subarachnoid hemorrhage Acute
[2018-05-20] MEDS: BACLOFEN 10 MG TAB PO SCH ×2 (07:58→16:31)
[2018-05-20] MEDS: FAMOTIDINE 20 MG TAB PO SCH (07:59)
[2018-05-20] MEDS: morphINE SR 15 MG TAB PO SCH (07:59)
[2018-05-20] MEDS: SENNOSIDES/DOCUSATE SODIUM TAB PO SCH (08:00)
[2018-05-20] MEDS: LIDOCAINE 4%/MENTHOL 1% PATCH TD SCH (08:01)
[2018-05-20] MEDS ORDERED: BISACODYL 10 MG SUPP PR ONE (08:45)
[2018-05-20] MEDS ORDERED: ENOXAPARIN 40 MG/0.4 ML SYR SC SCH (09:00)
[2018-05-20 11:57] VITALS: BP 138/81
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
--- NOTE | 2018-05-20 16:26 | PDIAF ---
- Diagnosis Code Status: Full Code - Medication Management Discharge Medications: Medications to Continue on Transfer Escitalopram Oxalate [Lexapro 10 MG] 10 mg PO DAILY PRN 05/09/18 [Last Taken Unknown] Acetaminophen [Tylenol ES 500 mg (*)] 1,000 mg PO Q8HRS tab 05/15/18 [Last Taken Unknown] Ibuprofen [Motrin (*)] 200 mg PO Q4HRS PRN 20 Days tab 05/15/18 [Last Taken Unknown] Lidocaine 4%/Menthol 1% [Icy Hot Lidocaine/Menthol 4%/1% Patch (*)] 1 patch TD DAILY 30 Days patch 05/15/18 [Last Taken Unknown] Scopolamine Hydrobromide [Scopolamine Patch] 1 patch TD Q72H #4 patch 05/15/18 [ Last Taken Unknown] valACYclovir [Valtrex (*)] 1 gm PO BID PRN 05/18/18 [Last Taken Unknown] Amoxicillin/Clavulanate Pot [Augmentin 875 MG TAB (*)] 875 mg PO BID #11 tab 07/26 [Last Taken Unknown] Baclofen [Baclofen 10 mg (*)] 10 mg PO TID PRN #60 tab 05/20/18 [Last Taken Unknown] HYDROmorphone HCL [Dilaudid 2 mg (*)] 2 mg PO Q4HRS PRN #30 tab 05/20/18 [Last Taken Unknown] Nystatin Susp [Mycostatin Oral Liquid] 5 ml PO QID #60 ml 05/20/18 [Last Taken Unknown] Ranitidine HCl 150 mg PO DAILY #30 capsule 05/20/18 [Last Taken Unknown] morphINE SR [Ms Contin/Oramorph 15 mg (*)] 15 mg PO BID #60 tab 05/20/18 [Last Taken Unknown] Discharge Medications: Refer to the Discharge Home Medication list for PRN reason. - Orders Services needed: Home Care, Registered Nurse, Physical Therapy, Occupational Therapy, Speech Language Pathologist Home Care Face to Face: I certify that this patient was under my care and that I had the required [id number] encounter meeting the encounter requirements on the discharge day. My findings support the fact that the patient is homebound as defined in Home Care Face to Face Continued: CMS Chapter 7 Medicare Benefits Manual 30.1.1 , The condition of the patient is such that there exists a normal inability to leave home and consequently, leaving home would require a considerable and taxing effort. Additional Instructions: Here are your discharge instructions: 1. We have prescribed MS contin 15mg twice daily. This is a long-acting pain medication and should be taken on a scheduled basis. 2. We have prescribed dilaudid (hydromorphone) 2mg tablets that you can take up to every 4 hours for breakthrough pain. You should take these on an as needed basis. If your pain isn't that severe, you should try tylenol or ibuprofen. 3. We switched out flexeril for baclofen, which is a muscle relaxer. You can take this up to three times/day on an as needed basis for muscle spasms/ hiccups. I encourage you to take this before bed as it may help improve your sleep. 4. We sent a prescription for nystatin liquid solution to treat your oral thrush. You should take this 4 times/day for the next 3 days. 5. We also sent a prescription for ranitidine to help treat heartburn symptoms. You may be able to get this cheaper over the counter (sold as Zantac). 6. We want you to complete 5 more days of augmentin, which is an antibiotic to treat a suspected pneumonia. You should finish this on 05/25. 7. You can continue to use lidocaine patches for pain and scopolamine patch for nausea as needed. 8. We have discontinued your valium (diazepam). This can interact with several of the other medications you are taking. 9. Please follow up with Dr Cabrera on Wednesday. 10. I recommend following up with your primary care doctor in the next couple weeks. Wound care orders Change dressings to right shoulder, left lower leg, and left elbow every 3 days and prn. 1. Clean with normal saline and gauze 2. Skin prep anamika wound 3. Wound gel to wound bed 4. Cover with Allevyn Life or other bordered foam dressing. If dressing is not large enough, may cut off one border to overlap dressings. Leyla Caputo [facility] - Follow Up Care Current Providers and Referrals: Zoran Carroll MD [Primary Care Provider] - As per Instructions
--- NOTE | 2018-05-20 16:48 | ASMTLACE ---
FAROOQE Length of stay for Answers: 2 days current admission Acuity / Level of Answers: Yes Care: Did the patient have an inpatient admission? # of Emergency department Answers: 1-2 visits in the last 6 months Score: 6 Date Signed: 05/20/2018 04:40 PM Electronically Signed By:ELIZA Steele
--- NOTE | 2018-05-20 16:52 | ASMTDCNOTE ---
Case Management Discharge Discharge Order Complete? Answers: Yes Patient to Obtain Answers: via Family Medications Transportation Arranged Answers: Family/Friends EMTALA Complete Answers: No Case Management Transport Answers: No Form Complete Faxed Final Orders Answers: Yes Agency/Facility Transfer Answers: Yes Report Printed & Faxed to Receiving Agency Family Notified Answers: Yes Discharge Comments Notes: Pts case discussed w/ Chas RN regarding d/c POC. Pt is being discharged today. CM met w/ pt and for dispo planning. They would like to continue to use [facility]. DC orders sent to [facility]. CM available for changes. Plan: [facility]; PT, OT, SPL, RN Date Signed: 05/20/2018 04:44 PM Electronically Signed By:ELIZA Steele
--- NOTE | 2018-05-20 16:52 | ASDISCHSUM ---
Discharge Information Plan Status:Home with No Needs Medically Cleared to Leave:05/20/2018 Discharge Date:05/20/2018 04:35 PM D/C Disposition: ADT D/C Disposition:Home, Routine, Self-Care Projected Discharge Date:05/20/2018 11:00 AM Transportation at D/C: Discharge Delay Reason: Follow-Up Date:05/20/2018 11:00 AM Discharge Slot: Final Diagnosis: Placement Information Referral Type:*Home Health Care Services Referral ID:[id number] Provider Name:[facility] Address 1:[address] [address] Address 2: City:[place] Selection Factors: State:[place] Patient Contact Information Contact Name:VASQUEZ Relationship: Address:[address] Work Phone: [facility]:[place] Alternate Phone: State/Zip Code:[place] [address] Email: Financial Information Financial Class:HMO and PPO Plans Primary Plan Desc:JARAD PPO POS HMO Primary Plan Number:[id number] Secondary Plan Desc: Secondary Plan Number: Assessment Information LACE LACE Length of stay for Answers: 2 days current admission Acuity / Level of Answers: Yes Care: Did the patient have an inpatient admission? # of Emergency department Answers: 1-2 visits in the last 6 months Score: 6 Date Signed: 05/20/2018 04:40 PM Electronically Signed By:ELIZA Steele [facility] CM Progress Note CM Note CM Note Notes: [facility] contacted and informed of patient's re-admission CM to follow Date Signed: 05/18/2018 03:09 PM Electronically Signed By:Windy Mckay RN Case Management Discharge Plan Note Case Management Discharge Discharge Order Complete? Answers: Yes Patient to Obtain Answers: via Family Medications Transportation Arranged Answers: Family/Friends EMTALA Complete Answers: No Case Management Transport Answers: No Form Complete Faxed Final Orders Answers: Yes Agency/Facility Transfer Answers: Yes Report Printed & Faxed to Receiving Agency Family Notified Answers: Yes Discharge Comments Notes: Pts case discussed w/ TRISH Doherty regarding d/c POC. Pt is being discharged today. CM met w/ pt and for dispo planning. They would like to continue to use [facility]. DC orders sent to [facility]. available for changes. Plan: [facility]; PT, OT, SPL, RN Date Signed: 05/20/2018 04:44 PM Electronically Signed By:ELIZA Steele Intervention Information Intervention Type:*Incorrect Registration Date of Service:05/18/2018 05:02 PM Patient Type:Observation Staff Member:TRISH Echols, Lorena Hours: Discipline: Severity: Comment:
[2018-05-20] MEDS ORDERED: AMOXICILLIN/CLAVULANATE POT 875/125 MG TAB PO SCH (21:00)
== END 2018-05-20 16:35 | disposition home or self-care (01) | DRG 194 ==
LOC: EDUNIT# → OBSVTOIN 13:24 → F2N 16:20 → F2W 05-19 13:10
PROVIDERS: ADMIT Internal Medicine; ATTEND Internal Medicine
DX: J18.9 Pneumonia, unspecified organism (principal); R06.89 Other abnormalities of breathing; N17.9 Acute kidney failure, unspecified; R13.10 Dysphagia, unspecified; E87.1 Hypo-osmolality and hyponatremia; G89.11 Acute pain due to trauma; S22.41XD Multiple fractures of ribs, right side, subsequent encounter for fracture with routine healing; S42.001D Fracture of unspecified part of right clavicle, subsequent encounter for fracture with routine healing; S12.500D Unspecified displaced fracture of sixth cervical vertebra, subsequent encounter for fracture with routine healing; S32.040D Wedge compression fracture of fourth lumbar vertebra, subsequent encounter for fracture with routine healing; S22.060D Wedge compression fracture of T7-T8 vertebra, subsequent encounter for fracture with routine healing; V19.40XA Pedal cycle driver injured in collision with unspecified motor vehicles in traffic accident, initial encounter; Z23 Encounter for immunization
CPT/HCPCS: 84484-PO; 96374; 97161-GP; 97165-GO; A9540; G0008; J0295; J1170; J1644; J1650; Q9967

== ENCOUNTER 2018-05-23 08:06 | Emergency (ER) | payer OTHER ==
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
[2018-05-23 09:09] VITALS: BP 135/85
--- NOTE | 2018-05-23 10:02 | PDCONSULT ---
Supervisor [employer] Note: spoke with Dr Lundberg. Spoke with patient in preop. He would like to proceed with the inherent risks. US negative. L great toe MTP with pain and redness. No tenderness lesser toes. NVI. GHULAM discusses. ORIF Right clavicle.
== END 2018-05-23 09:10 | disposition home or self-care (01) ==
DX: M79.672 Pain in left foot (principal); M79.89 Other specified soft tissue disorders; M10.472 Other secondary gout, left ankle and foot; Z87.828 Personal history of other (healed) physical injury and trauma

== ENCOUNTER 2018-05-23 09:21 | Day surgery (SDC) | payer OTHER ==
[~2018-05-23 09:21] MED LIST: LR 1,000 ML IV ONE
[2018-05-23] MEDS ORDERED: ROPIVACAINE HCL 20 MG/10 ML INJ EP ONE ×2 (09:43→12:11)
[2018-05-23] MEDS ORDERED: ceFAZolin 2 GM/DEXTROSE 100 ML IV ONE (10:30)
[2018-05-23] MEDS ORDERED: MIDAZOLAM 2 MG/2 ML VIAL ONE (10:54)
[2018-05-23] MEDS ORDERED: MIDAZOLAM 2 MG/2 ML VIAL IVP ONE (10:58)
--- NOTE | 2018-05-23 11:00 | PDANEPAE ---
ANE Past Medical History - Pulmonary History Hx Oxygen in Use at Home: No Hx Sleep Apnea: No - Endocrine History Hx Diabetes: No Obesity: no - Chronic Pain History Chronic Pain: No ANE Review of Systems Review of Systems: ANE Patient History - Allergies Allergies/Adverse Reactions: No Known Allergies Allergy (Verified 05/23/18 08:11) - Home Medications Home medications: home medication list seen and reviewed Home Medications: Escitalopram Oxalate [Lexapro 10 MG] 10 mg PO DAILY PRN 05/09/18 [Last Taken 3 Weeks Ago ~05/02/18] valACYclovir [Valtrex (*)] 1 gm PO BID PRN 05/18/18 [Last Taken 2 Months Ago ~] DIAZEPAM 05/23/18 [Last Taken 05/21/18] - NPO status NPO Status: no food or drink >8 hours NPO Since - Liquids (Date): 05/23/18 NPO Since - Liquids (Time): 00:00 NPO Since - Solids (Date): 05/22/18 NPO Since - Solids (Time): 21:30 - Anes Hx Anes Hx: no prior problems - Smoking Hx Smoking Status: Never smoked - Family Anes Hx Family Anes Hx: neg - N/A ANE Labs/Vital Signs - Vital Signs Blood Pressure: 160/94 Heart Rate: 64 Respiratory Rate: 18 O2 Sat (%): 94 Height: 187.96 cm Weight: 95.254 kg ANE Physical Exam - Airway Neck exam: FROM Mallampati Score: Class 2 Mouth exam: normal dental/mouth exam - Pulmonary Pulmonary: no respiratory distress, no rales or rhonchi, clear to auscultation - Cardiovascular Cardiovascular: regular rate and rhythym, no murmur, rub, or gallop - ASA Status ASA Status: II ANE Anesthesia Plan Anesthesia Plan: GA w LMA
[2018-05-23] MEDS ORDERED: PROPOFOL 200 MG/20 ML VIAL ONE (11:08)
[2018-05-23] MEDS ORDERED: DEXAMETHASONE 4 MG/ML VIAL ONE ×2 (11:09)
[2018-05-23] MEDS ORDERED: ONDANSETRON 4 MG/2 ML VIAL ONE (11:09)
[2018-05-23] MEDS ORDERED: KETAMINE 200 MG/20 ML VIAL ONE (11:30)
[2018-05-23] MEDS ORDERED: ESMOLOL HCL 100 MG/10 ML VIAL IV ONE (11:39)
[2018-05-23] MEDS ORDERED: LR 500 ML IV PRN (12:12)
[2018-05-23] MEDS ORDERED: PROMETHAZINE HCL 25 MG/ML INJ IVP PRN (12:12)
[2018-05-23] MEDS ORDERED: HYDROCODONE/APAP 5/325 TAB PO PRN (12:12)
[2018-05-23] MEDS ORDERED: ACETAMINOPHEN 500 MG TAB PO PRN (12:12)
[2018-05-23] MEDS ORDERED: NALOXONE HCL 0.4 MG/ML INJ IVP PRN (12:12)
[2018-05-23] MEDS ORDERED: ONDANSETRON 4 MG/2 ML VIAL IVP PRN (12:12)
[2018-05-23] MEDS ORDERED: oxyCODONE IR 5 MG TAB PO PRN (12:12)
--- NOTE | 2018-05-23 12:55 | POSTANESTH ---
Post Anesthetic Evaluation Cardiovascular Status: Other, See Comment (Tachycardic (114) on arrival.) Respiratory Status: Tx Decrease in SpO2 (Oxygen sat 88-90% with facemask. He feels SOB and RR is 20. Will order CXR to rule out PTX.) Level of Consciousness/Mental Status: Can Participate in Eval, Mildly Sleepy, Arousable Pain Control: Inadeq, Add Tx Required Nausea/Vomiting Control: Adequate, Prn Tx Ordered Complications Possibly Related to Anesthesia: None Noted
[2018-05-23] MEDS ORDERED: fentaNYL 100 MCG/2 ML INJ ONE (13:00)
[2018-05-23] MEDS: fentaNYL 100 MCG/2 ML INJ IVP PRN ×2 (13:05→13:08)
[2018-05-23] MEDS ORDERED: DIAZEPAM 5 MG/ML 1 ML SYR ONE (13:10)
[2018-05-23] MEDS: DIAZEPAM 5 MG/ML 1 ML SYR IVP PRN ×2 (13:11→13:28)
[2018-05-23] MEDS ORDERED: HYDROCODONE/APAP 5/325 TAB ONE (13:22)
--- NOTE | 2018-05-23 14:19 | GOP ---
DATE OF OPERATION: 05/23/2018 SURGEON: Lenora Cabrera MD ANESTHESIA: LMA PREOPERATIVE DIAGNOSIS: Displaced right clavicle fracture. POSTOPERATIVE DIAGNOSIS: Displaced right clavicle fracture. PROCEDURE PERFORMED: Open reduction, internal fixation, right clavicle fracture. FINDINGS: ESTIMATED BLOOD LOSS: Minimal. INDICATIONS: The patient is a 48-year-old male with a displaced right clavicle fracture. Multi-trau ma. Deemed medically fit for surgery. DESCRIPTION OF PROCEDURE: Patient identified in the preoperative holding area. Consent, laterality, and preoperative antibiotics were confirmed delivered. All questions were answered. Recent diagnos is of gout in his left great toe, as well as a negative pulmonary embolus study the prior weekend. H e is in a C-collar and Keisha brace. Presents for unstable displaced right clavicle fracture fixatio n. Patient brought to the operating room. General anesthesia. Head of bed was 20 degrees. LMA was use d. pole sander operator was used for in-line stabilization of his neck. The right upper extremity was preppe d and draped in usual sterile fashion to the mid sternal border. Surgical time-out was performed. Standard curvilinear incision superior clavicle. Careful cautery of all bleeders. Sharp dissection down to the bone. The most lateral distal portion of the clavicle was displaced about 2 cm inferiorl y and anteriorly. We freed up the callus carefully. clear up the fracture ends. Took 2 bone reduction forceps and reduced the clavicle. There was a small anterior piece, wafer thin, 2 x 1 cm portion that completed the puzzle. It was a short oblique type of fracture. We placed lag screw s in for anatomic reduction and chose a 7 hole neutralization plate. We washed out the wound copious ly with 500 cc of warm normal saline. 2-0 PDS, 3-0 Monocryl, and Dermabond for closure. Steri-Strip s applied. Hampton dressing applied. C-collar applied. COMPLICATIONS: None. TOTAL SURGICAL TIME: 45 minutes. DISPOSITION: Extubated to PACU in stable condition. /[id number]/MODL
[2018-05-23] MEDS ORDERED: ONDANSETRON DISINTEGRATING 4 MG TAB ONE (15:36)
[2018-05-23] MEDS ORDERED: ONDANSETRON DISINTEGRATING 4 MG TAB PO ONE (15:45)
[2018-05-23 16:13] VITALS: BP 149/95
== END 2018-05-23 16:05 | disposition home or self-care (01) ==
LOC: FSGY 09:21
PROVIDERS: ATTEND Orthopaedic Surgery
PROC: 0PS904Z Reposition Right Clavicle with Internal Fixation Device, Open Approach (ICD-10-PCS; principal; 2018-05-23 10:15)
DX: S42.021A Displaced fracture of shaft of right clavicle, initial encounter for closed fracture (principal); V18.4XXA Pedal cycle driver injured in noncollision transport accident in traffic accident, initial encounter; Y92.414 Local residential or business street as the place of occurrence of the external cause; Y93.55 Activity, bike riding; Y99.8 Other external cause status
CPT/HCPCS: C1713; J0690; J1100; J2250; J2270; J2405; J2704; J2795; J3010; J3360

== ENCOUNTER → 2018-06-14 | Outpatient (CLI) | payer OTHER | LOC: FIMAGING 14:29 | PROVIDERS: ATTEND Physician Assistant Surgical | DX: S32.040D Wedge compression fracture of fourth lumbar vertebra, subsequent encounter for fracture with routine healing (principal); R29.890 Loss of height ==

== ENCOUNTER → 2018-06-21 | Outpatient (CLI) | payer OTHER | LOC: BMCIMAGING 13:43 | PROVIDERS: ATTEND Orthopaedic Surgery Hand Surgery | DX: S62.619D Displaced fracture of proximal phalanx of unspecified finger, subsequent encounter for fracture with routine healing (principal) ==